=== PATIENT | female | born 1985 | race Caucasian/White ===

== ENCOUNTER → 2021-07-19 | Outpatient (CLI) | payer BC ==
[~2021-07-19] VITALS: Ht 157.5 cm; Wt 63.5 kg
[~2021-07-19] MED LIST: FAMOTIDINE20 MG PO; NATURE-THROID65 MG PO; PRENATAL DHA200 MG PO
== END ==
LOC: EROP 12:58
DX: U07.1 COVID-19 (principal); E11.9 Type 2 diabetes mellitus without complications; Z23 Encounter for immunization
CPT/HCPCS: 96365